=== PATIENT | male | born 1955 | race Caucasian/White ===

== ENCOUNTER 2022-01-27 16:25 | Emergency (ER) | payer OTHER ==
[~2022-01-27] VITALS: Ht 177.8 cm; Wt 63.5 kg
[~2022-01-27 16:25] MED LIST: EPI EZ PEN1 MG/ML IM; MEDROL DOSEPAK4 MG PO; PEPCID20 MG PO; PRILOSEC20 MG PO; ULTRAM50 MG PO; VICODIN ES 7501 TAB PO; ZYRTEC10 MG PO
[2022-01-27 16:30] VITALS: BP 125/89
[2022-01-27 17:22] LABS: BASO % 0.5 % (0.0-1.0); EOS # 0.1 10*3/uL (0.0-0.4); EOS % 1.5 % (1.0-4.0); HEMATOCRIT 45.1 % (42.0-52.0); LYMPH # 1.8 10*3/uL (1.3-4.4); LYMPH % 20.7 % (27.0-41.0); MEAN CORPUSCULAR HGB 32.8 pg (27.0-31.0); MEAN CORPUSCULAR HGB CONC 34.1 g/dl (33.0-37.0); MEAN PLATELET VOLUME 9.7 fl (9.6-12.3); MONO # 0.5 10*3/uL (0.1-1.0); MONO % 5.6 % (3.0-9.0); NEUT # 6.4 10*3/uL (2.3-7.9); NEUT % 71.6 % (47.0-73.0); PLATELET COUNT AUTOMATED 236 10*3/uL (130-400); RED CELL DISTRI WIDTH 13.2 % (0-14.5); WHITE BLOOD COUNT 8.9 10*3/uL (4.8-10.8)
[2022-01-27 17:46] LABS: ALKALINE PHOSPHATASE 67 U/L (45-117); BUN 12 mg/dl (7-24); CHLORIDE 109 mmol/L (98-107); CREATININE 0.69 mg/dL (0.70-1.30); POTASSIUM 3.6 mmol/L (3.5-5.1); SGOT/AST 17 IU/L (3-35); SGPT/ALT 19 U/L (12-78); SODIUM 138 mmol/L (136-145); TOTAL PROTEIN 6.7 gm/dL (6.4-8.2)
[2022-01-27] MEDS ORDERED: EPIPEN 2-P0.3 MG/0.3 IJ (20:48)
[2022-01-27] MEDS ORDERED: MEDROL DOSEPAK4 MG PO (20:48)
== END 2022-01-27 20:56 | disposition home or self-care (01) ==
LOC: ED 16:25
PROVIDERS: Physician Assistant
DX: T78.2XXA Anaphylactic shock, unspecified, initial encounter (principal); Y92.89 Other specified places as the place of occurrence of the external cause